=== PATIENT | female | born 1955 ===

== ENCOUNTER 2025-05-22 05:20 | Day surgery (SDC) | payer OTHER ==
[2025-05-14 10:06] LABS: BASO % 0.6 % (0.1-1.2); EOS # 0.07 (0.04-0.54); EOS % 1.4 % (0.7-7.0); LYMPH # 1.69 (1.18-3.74); LYMPH % 33.4 % (19.3-53.1); MEAN PLATELET VOLUME 10.00 fl (9.4-12.4); MONO # 0.38 (0.24-0.82); MONO % 7.5 % (4.7-12.5); NEUT # 2.88 (1.56-6.13); NEUT % 56.9 % (34.0-71.1); RED CELL DISTRIBUTION WIDTH 13.0 % (11.6-14.4)
[2025-05-14 10:15] LABS: URINE APPEARANCE Cloudy; URINE BILIRRUBIN Negative (NEGATIVE); URINE BLOOD Negative; URINE COLOR Yellow; URINE GLUCOSE Negative (NEGATIVE); URINE KETONE Negative (NEGATIVE); URINE LEUKOCYTE Small; URINE NITRATE Negative; URINE PROTEIN Trace (NEGATIVE); URINE UROBILINOGEN 0.2 E.U./dl
[2025-05-14 10:19] LABS: URINE BACTERIA 31.1 uL (0.0-1933); URINE EPITHELIAL CELLS 4.1 uL (0.0-38.8); URINE RBC 10.4 uL (0.0-20.8); URINE WBC 15.2 uL (0.0-23.2)
[2025-05-14 10:26] LABS: URINE CAST 0.00 uL (0.0-1.40)
[2025-05-14 10:28] VITALS: BP 149/86
[2025-05-14 10:53] LABS: INR 1.01
[2025-05-14 11:01] LABS: ALT/SGPT 13.0 U/L (12-78); AST/SGOT 20.0 U/L (15-37); BILIRUBIN TOTAL 0.93 mg/dL (0.3-1.2); BUN CREA RATIO 16.0 (7.0-25.0); CREATININE SERUM 0.79 mg/dL (0.55-1.02); GFR 71.74; GLOBULINA 3.9 G/DL (2.4-3.5); GLUCOSE FASTING 90.0 mg/dL (65-100); OSMOLALITY SERUM 277.0 MOSM/KG (275-295)
[~2025-05-22] VITALS: Ht 157.5 cm; Wt 54.4 kg
[~2025-05-22 05:20] MED LIST: CRESTOR40 MG PO; EVISTA60 MG PO; LEVOTHYROXINE25 MCG PO; ZETIA10 MG PO
[2025-05-22] MEDS ORDERED: POVIDONE-IODINE 118 ML BOTT TOP ONE (08:00)
[2025-05-22] MEDS ORDERED: CEFAZOLIN SODIUM 1,000 MG VIAL IV ONE (08:00)
[2025-05-22] MEDS ORDERED: DOXYCYCLINE HY100 M2 PO (09:42)
[2025-05-22] MEDS ORDERED: IBU600 MG PO (09:43)
== END 2025-05-22 13:05 | disposition home or self-care (01) ==
LOC: CIR.AMB 05:20
PROVIDERS: ATTEND Obstetrics & Gynecology
DX: D25.0 Submucous leiomyoma of uterus (principal); N84.0 Polyp of corpus uteri; N92.0 Excessive and frequent menstruation with regular cycle